=== PATIENT | female | born 1985 | race Asian ===

== ENCOUNTER 2017-12-30 03:38 | Inpatient (IN) ==
[~2017-12-30 03:38] MED LIST: Famotidine 20 MG/2 ML VIAL IVP PRN; Metoclopramide 10 MG/2 ML VIAL IVP PRN; Naloxone 0.4 MG/ML INJ IVP PRN
[2017-12-30] MEDS ORDERED: Ringers Solution, Lactated 1,000 ML IVC SCH ×3 (03:45→05:30)
[2017-12-30 04:10] LABS: Basophils % 0.5 %; Eosinophils # 0.1 K/mcL (0.0-0.6); Eosinophils % 1.7 %; Hematocrit 37.5 % (35.3-44.9); Hemoglobin 12.1 g/dL (11.5-15.4); Immature Granulocytes % 0.6 % (0-4); Lymphocytes # 1.9 K/mcL (0.6-4.6); Lymphocytes % 24.4 %; Mean Corpuscular HGB Conc 32.3 g/dL (31.6-35.5); Mean Corpuscular Hemoglobin 28.2 pg (28.0-33.3); Mean Corpuscular Volume 87.4 fL (83.0-100.0); Mean Platelet Volume 11.1 fL (9.4-12.4); Monocytes # 0.8 K/mcL (0.0-1.3); Monocytes % 9.8 %; Platelet Count 288 K/mcL (140-400); Red Blood Count 4.29 M/mcL (3.82-4.97); Red Cell Distribution Width 15.8 % (11.5-14.5)
[2017-12-30 04:19] LABS: Amphetamine Screen,Urine Negative ng/mL (Cutoff=1000); Barbiturate Screen,Urine Negative ng/mL (Cutoff=200); Benzodiazepines Screen,Urine Negative ng/mL (Cutoff=200); Cannabinoid Screen,Urine Negative ng/mL (Cutoff = 50); Cocaine Screen,Urine Negative ng/mL (Cutoff= 300); Opiate Screen,Urine Negative ng/mL (Cutoff=300); Phencyclidine Screen,Urine Negative ng/mL (Cutoff=25)
[2017-12-30] MEDS ORDERED: CeFAZolin Premix DUPLEX 2,000 MG/50 ML BAG IVPB ONE (04:30)
--- NOTE | 2017-12-30 04:30 | Anesthesia Evaluation PreOp ---
Date of Encounter: 12/30/17 Time of Encounter: 04:28 - Past History Planned Operation: Repeat Csection Cardiac History: Denies any Significant Hx Pulmonary History: Denies Any Significant HX LOW HEEL BUILDER History: Denies Any Significant HX Other Medical History: Thyroid (hx hyperthyroidism) Anesthesia History: No Prior Anesthetic Complications, Past Anesthesia ( Previous Csection x 2, no General anesthetic hx. No family history of anesthesia complications.) : Yes Alcohol Use: none Drug use: none Medications and Allergies Vit/Iron Fumarate/FA [ Tablet] 1 each PO DAILY 12/30/17 [ History] 3 Allergy/AdvReac Type Severity Reaction Status Date / Time No Known Allergies Allergy Verified 12/30/17 03:32 - Meds/Allergy Pre-op Review Medications Reviewed: Yes Allergies Reviewed: Yes Beta Blockers on Current Med List: No Anesthesia Results - Labs 12/30/17 03:38 Anesthesia Exam BP 132/80 P 81 R 16 T 97.6 Height: 5'3" Weight: 74kg NPO (# of Hours): 7.5 Pain Scale: 0 - HEENT Pupil (Motor): Pupils equal Mallampati: III Teeth: Normal Oral Opening: Less than or equal to 3 - LOW HEEL BUILDER LOC: Oriented LOW HEEL BUILDER Motor: Normal RUE, Normal LUE, Normal RLE, Normal LLE, Normal Face LOW HEEL BUILDER Sensory: Normal: RUE, LUE, RLE, LLE, Face - Cardiac Rhythm: Regular Murmur: None JVD: No Carotid Bruit: No - Pulmonary Breath Sounds: bilateral Clear Respiratory Effort: Symmetrical Anesthesia Assess/Plan ASA Score: 2 Modified Dulce Scale for Level of Consciousness: Cooperative, oriented, and tranquil Anesthetic Plan: Regional Autologous Blood: No Monitoring Plan: Standard Monitors Recovery Plan: PACU
[2017-12-30] MEDS ORDERED: Morphine Sulfate/PF 5mg/10mL Vial ONE (04:47)
--- NOTE | 2017-12-30 04:51 | OB/GYN History & Physical ---
Date of Encounter: 12/30/17 Time of Encounter: 04:47 Assessment and Plan (1) History of delivery affecting Current visit: Yes Status: Acute consents signed, patient counseled Anesthesia aware, will proceed to . History of Present Illness HPI: Ms. Coleman is a 32 year old female @ 38+3 weeks with a h/o 2 prior c- sections who was initially scheduled for a RC/S on 01/03. She presents with rupture of membranes, no bleeding, feels good FM. She desires permanent sterilization. Past Med Surg Social Fam HX - Past Medical History Medical history: no medical history Psychiatric history: no psych history - Past Surgical History Surgical History: - Social History Smoking Status: Never smoker Smokeless Tobacco Status: No Alcohol use: none Drug use: none - Family History Mother Living Status: Still Living Hx Family Cardiac Disorders: Yes (high cholesterol) Obstetrical History - Pregnancies : 3 Para: 2 Medications and Allergies Vit/Iron Fumarate/FA [ Tablet] 1 each PO DAILY 12/30/17 [ History] 3 Allergy/AdvReac Type Severity Reaction Status Date / Time No Known Allergies Allergy Verified 12/30/17 03:32 Review of System OB All systems PM: reviewed and no additional remarkable complaints except as stated Exam - Constitutional Constitutional: no acute distress - HEENT HEENT: PERRL - Neck Neck exam: full ROM - Lungs Respiratory exam: CTAB - Cardiovascular Cardiovascular exam: RRR - Abdomen Abdomen: Present: gravid Results Result Diagrams: 12/30/17 03:38 Abnormal lab results RDW 15.8 % (11.5-14.5) H 12/30/17 03:38 All other labs normal.
[2017-12-30] MEDS ORDERED: Ondansetron 4 MG/2 ML VIAL IVP PRN ×2 (04:54→06:53)
[2017-12-30] MEDS ORDERED: Simethicone 80 MG TAB.CHEW PO PRN (04:54)
[2017-12-30] MEDS ORDERED: Sennosides 8.6 MG TABLET PO PRN (04:54)
[2017-12-30] MEDS ORDERED: *HR* OxyCODONE/APAP 5/325 TABLET PO PRN ×2 (04:54→06:53)
[2017-12-30] MEDS ORDERED: Metoclopramide 10 MG/2 ML VIAL IVP PRN (04:54)
[2017-12-30] MEDS ORDERED: Oxytocin 20 units/ LR 1000 mL 20 UNIT/1,000 ML BAG IVC SCH (05:00)
[2017-12-30] MEDS ORDERED: Ondansetron 4 MG/2 ML VIAL ONE (05:04)
[2017-12-30] MEDS ORDERED: Dexamethasone 4 MG/ML VIAL ONE (05:04)
--- NOTE | 2017-12-30 05:26 | Anesthesia Procedures ---
<Mando Gonzalez M - Last Filed: 12/30/17 05:23> Date of Encounter: 12/30/17 Time of Encounter: 04:58 Procedures: Anesthesia - Epidural/Spinal Patient ID/Chart reviewed: Yes Patient examined: Yes OB Eval: Gestational age: 38.3 OB Eval: : 3 OB Eval: Hx Para: 2 OB Eval: Contractions: Non-stressed pattern Consent Obtained: Yes Supplemental Oxygen: None/Room Air Site Prep: Aseptic Technique, Sterile prep and drape, Povidone-Iodine 1% Patient position: upright Local Anesthetic: Lidocaine 1% Amount of Local Anesthetic used: 3 Interspace Used: L4-L5 Loss of Resistance (LOUIE): No Blood: No CSF: Yes Paresthesia: No Spinal Needle Gauge: 25 Spinal Dose: Bupivicaine 0.75% epi wash Morphine 250mcg Procedure: Intrathecal dose administered 1st pass in upright position without any immediate noted complications. VSS throughout. Supine for repeat csection. Vitals + FHT's: See anesthesia record. <Elena Drew A - Last Filed: 01/16/18 07:20> Date of Encounter: 01/16/18
[2017-12-30] MEDS ORDERED: Acetaminophen IV 1,000 MG/100 ML INFUS..BTL IVPB ONE (05:27)
[2017-12-30] MEDS ORDERED: *HR* Promethazine 25 MG/ML VIAL IVP PRN (05:27)
[2017-12-30] MEDS ORDERED: Ondansetron 4 MG/2 ML VIAL IVP ONE (05:27)
[2017-12-30] MEDS ORDERED: *HR* Meperidine 25 MG/ML SYRINGE IVP PRN (05:27)
[2017-12-30] MEDS ORDERED: *HR* OxyCODONE Immed Rel 5 MG TABLET PO PRN (05:27)
[2017-12-30] MEDS ORDERED: *HR* HYDROmorphone 2 MG TABLET PO PRN (05:27)
[2017-12-30] MEDS ORDERED: *HR* Oxytocin 10 UNIT/ML VIAL IM ONE (05:44)
--- NOTE | 2017-12-30 06:36 | OB/GYN Procedure Note ---
OB-[facility] OPERATOR: Procedure - Diagnosis Date of procedure: 12/30/17 Pre-op diagnosis: h/o prior x2, undesired fertility Post-op diagnosis: same - Procedure Procedure: RC/S, BTL Surgeon: Karlos Yadav Was there an hearing aid assistant present: Yes Quality Process Lead: Sophie Hernandez Anesthesia Type: Spinal Estimated blood loss (cc): 20 Fluids: crystalloid Procedure Complications: none Specimens collected: b/l tubes, placenta Disposition: floor Findings: normal uterus, ovaries and tubes, mild pelvic adhesions connecting rectus muscles to ant abd wall Narrative: Patient was brought to the operating room and was given satisfactory spinal anesthesia. The abdomen was prepped and draped in a sterile fashion. A Pfannenstiel incision was made and carried sharply down to the level of fascia. The fascia was incised transversely. The fascia was dissected away from the underlying rectus muscles. With sharp and blunt dissection, rectus muscles were divided in midline. We encountered mild pelvic adhesions but we were able to take down the adhesions without too much difficulty. The peritoneum was entered bluntly. The incision was carried vertically with scissors. Transverse incision was made across the bladder peritoneum. The bladder was dissected away from the underlying lower uterine segment. Bladder retractor was placed to protect the bladder. The lower uterine segment was entered sharply with a scalpel. Incision was manually extended. Infant was noted to be breech with nuchal cord x 2. Infant was delivered atraumatically. The mouth and oropharynx were suctioned. The cord was clamped and cut. The was passed off to the waiting nurse. APGARs 3/9. Placenta was extracted completely and found to be intact. Uterus was explored and found to be empty. Uterus was delivered through the abdominal incision and massaged vigorously. Intravenous Pitocin was administered. Clamps were placed about the margins of the uterine incision, which was closed primarily with a running locking stitch of 0 Vicryl with adequate hemostasis. Secondary running locking stitch was placed for extra strength to the wound. At this point, attention was diverted to the patient's tubes, a [place] clamp grasped the isthmic portion of each tube and approximately 1-cm knuckle on either side was tied off with two lengths of 0 plain catgut. Intervening knuckle was excised and passed off the field. The proximal end of the tubal mucosa was cauterized. The uterus was returned to its proper anatomic position in the abdomen. The fascia was closed with a simple running stitch of 0 vicryl. The skin was closed with running subcuticular of 4-0 vicryl. Uterus was expressed of its contents. Patient was brought to the recovery room in satisfactory condition. There were no complications. There was 250 cc of blood loss. All sponge, needle, and instrument counts were reported to be correct.
[2017-12-30] MEDS ORDERED: Ibuprofen 400 MG TABLET PO PRN (06:53)
[2017-12-30] MEDS ORDERED: *HR* Morphine 2 MG/ML SYRINGE IVP PRN (06:53)
--- NOTE | 2017-12-30 14:03 | Anesthesia Evaluation Post Op ---
Date of Encounter: 12/30/17 Time of Encounter: 14:02 - Vital Signs Vital Signs: Vital Signs/O2 Sat, Most Current Temp Pulse Resp BP Pulse Ox 98.6 F 69 16 128/69 95 12/30/17 12:00 12/30/17 12:00 12/30/17 12:00 12/30/17 12:00 12/30/17 12:00 - Lungs Lungs: Clear Ascult./Percussion - Airway Airway: Non-obstructed - Cardiovascular Regular Rate - Mental Status Mental Status: Alert & Oriented, Answers Appropriately - Pain Pain Scale: 3 - Nausea Vomiting Nausea Vomiting: Not Present - Hydration Hydration: Tolerates oral liquids, Balderas catheter
[2017-12-30] MEDS: Prenatal Vit/FA 1 EACH TABLET PO SCH (16:23)
[2017-12-31 04:31] LABS: Basophils % 0.2 %; Eosinophils # 0.1 K/mcL (0.0-0.6); Eosinophils % 0.5 %; Hemoglobin 10.9 g/dL (11.5-15.4); Immature Granulocytes % 0.4 % (0-4); Lymphocytes # 2.3 K/mcL (0.6-4.6); Lymphocytes % 18.4 %; Mean Corpuscular HGB Conc 32.1 g/dL (31.6-35.5); Mean Corpuscular Volume 87.4 fL (83.0-100.0); Mean Platelet Volume 10.3 fL (9.4-12.4); Monocytes # 0.9 K/mcL (0.0-1.3); Monocytes % 7.1 %; Platelet Count 241 K/mcL (140-400); Red Blood Count 3.89 M/mcL (3.82-4.97); Red Cell Distribution Width 15.8 % (11.5-14.5); Segmented Neutrophils % 73.4 %
[2017-12-31] MEDS: Ibuprofen 600 MG TABLET PO PRN ×2 (09:13→21:12)
[2017-12-31] MEDS: Prenatal Vit/FA 1 EACH TABLET PO SCH (09:13)
--- NOTE | 2017-12-31 10:42 | OB/GYN Progress Note ---
Date of Encounter: 12/31/17 Time of Encounter: 10:38 - Assessment and Plan (1) Status post delivery Current Visit: Yes Status: Acute POD #1 Continue routine care Anticipate d/c home tomorrow Subjective - Subjective Principal diagnosis: s/p RLTCS Interval history: Feeling well. OOB without dizziness. Cramping minimal - using ibuprofen. Bottle feeding. Voiding without difficulty. Passing flatus, no BM yet. Tolerating regular diet and ambulating independently. Patient reports: appetite normal, voiding normally, pain well controlled, ambulating normally [place]: doing well, bottle feeding Objective - Vital Signs Latest vital signs: Vital Signs Temp Pulse Resp BP Pulse Ox 12/31/17 09:30 16 12/31/17 08:20 98.2 F 76 18 113/71 97 12/31/17 04:10 98.2 F 74 16 110/68 96 12/30/17 22:15 98.1 F 71 16 111/68 96 12/30/17 15:58 98.5 F 67 16 108/61 12/30/17 12:00 98.6 F 69 16 128/69 95 12/30/17 11:00 98.1 F 75 16 123/78 95 Intake and Output 12/30/17 12/31/17 12/31/17 23:59 07:59 15:59 Intake Total 360 / 360 0 / 0 Output Total 640 / 640 Balance 360 / 360 -640 / -640 Intake: Oral 360 / 360 0 / 0 Output: Catheter 640 / 640 Other: Meal Dinner Percent of Meal Consumed 50% Stool Characteristics Normal for Patient - Exam Lungs: bilateral: normal Chest: Normal S1, Normal S2 Extremities: Present: normal. Absent: edema Abdomen: Present: normal appearance, soft Incision: Present: normal, intact, dressed Uterus: Present: normal, firm Fundal Height: 0 (midline) - Labs Labs: Laboratory Results - last 24 hr 12/31/17 04:11 WBC 12.3 H D RBC 3.89 Hgb 10.9 L Hct 34.0 L MCV 87.4 MCH 28.0 MCHC 32.1 RDW 15.8 H Plt Count 241 MPV 10.3 Immature Gran % 0.4 Seg Neutrophils % 73.4 Lymphocytes % 18.4 Monocytes % 7.1 Eosinophils % 0.5 Basophils % 0.2 Neutrophils # 9.0 H Lymphocytes # 2.3 Monocytes # 0.9 Eosinophils # 0.1 Basophils # 0.0
[2018-01-01] MEDS: Ibuprofen 600 MG TABLET PO PRN (06:38)
--- NOTE | 2018-01-01 07:40 | Discharge Summary ---
Date of Encounter: 01/01/18 Time of Encounter: 07:37 - Discharge Diagnosis (1) Status post delivery Priority: Primary Status: Acute Comments: Pain well controlled with PO pain meds Tolerating regular diet Voiding independently Passing flatus, but no BM yet Lochia light Ambulating independently Ready for discharge today. - Discharge Medications Prescriptions: OxyCODONE/APAP 5/325 [Percocet 5/325 MG] 1 each PO Q4HR 5 Days #30 tablet Ibuprofen [Motrin] 600 mg PO Q6HR PRN #30 tablet PRN Reason: Cramping Docusate [Colace] 100 mg PO BID #60 capsule Ferrous Sulfate 325 mg PO DAILY #30 tablet Home Medications: Vit/Iron Fumarate/FA [ Tablet] 1 each PO DAILY 12/30/17 [ History] Docusate [Colace] 100 mg PO BID #60 capsule 01/01/18 [Rx] Ferrous Sulfate 325 mg PO DAILY #30 tablet 01/01/18 [Rx] Ibuprofen [Motrin] 600 mg PO Q6HR PRN #30 tablet 01/01/18 [Rx] OxyCODONE/APAP 5/325 [Percocet 5/325 MG] 1 each PO Q4HR 5 Days #30 tablet [Rx] Simethicone [Gas-X] 80 mg PO TID PRN tab.chew 01/01/18 [Rx] Allergies/Adverse Reactions: 3 Allergy/AdvReac Type Severity Reaction Status Date / Time No Known Allergies Allergy Verified 12/30/17 03:32 Data Procedures and tests throughout hospitalization: Laboratory Tests 12/30/17 12/30/17 12/31/17 03:38 03:38 04:11 WBC 7.9 12.3 H D RBC 4.29 3.89 Hgb 12.1 10.9 L Hct 37.5 34.0 L MCV 87.4 87.4 MCH 28.2 28.0 MCHC 32.3 32.1 RDW 15.8 H 15.8 H Plt Count 288 241 MPV 11.1 10.3 Immature Gran % 0.6 0.4 Seg Neutrophils % 63.0 73.4 Lymphocytes % 24.4 18.4 Monocytes % 9.8 7.1 Eosinophils % 1.7 0.5 Basophils % 0.5 0.2 Neutrophils # 5.0 9.0 H Lymphocytes # 1.9 2.3 Monocytes # 0.8 0.9 Eosinophils # 0.1 0.1 Basophils # 0.0 0.0 Urine Opiates Screen Negative Ur Barbiturates Screen Negative Ur Phencyclidine Scrn Negative Ur Amphetamines Screen Negative U Benzodiazepines Scrn Negative Urine Cocaine Screen Negative U Marijuana (THC) Screen Negative Date of admission: 12/30/17 03:38 Primary care physician: PCP NONE Discharging clinician: Ivy Suero Anticipated date of discharge: 01/01/18 - Patient Status Disposition: Home, Self-Care Condition: Good Functional capacity at discharge: independent ambulation Overall status at discharge: patient is progressing back to baseline - Discharge Instructions Follow Up With: NONE,PCP [Primary Care Provider] - Omayra Rojas DO [Partnered Physician] - - Diet and Activity Activity: increase activity as tolerated Diet: regular diet Hospital Course Reason for admission: section, IUP at term Delivery: section Episiotomy: none Laceration: none Other procedures: none complications: none Discharge diagnosis: IUP at term delivered Brooks baby: female Time Attestation: Total time spent providing and/or coordinating discharge services: Time Spent: Less than 30 minutes - VTE Documentation of Mechanical Device: Intermittent pneumatic compression device Exam - Constitutional Vitals: Temp Pulse Resp BP Pulse Ox 98.3 F 86 16 144/75 96 12/31/17 21:11 12/31/17 21:11 12/31/17 21:11 12/31/17 21:11 12/31/17 21:11 General appearance IM: A&O X 3 - Respiratory Respiratory exam: Present: CTAB - Cardiovascular Cardiovascular exam IM: Present: RRR, +S1, +S2 - GI/Abdominal GI/Abdominal exam IM: normal bowel sounds, no peritoneal signs Incision: normal, dry, intact - Rectal Rectal exam: deferred - Uterine Tone: Firm Uterus Position: 2 Fingers Below Umbilicus, Midline - Extremities Exam Extremities exam IM: Present: normal inspection, radial pulses palpable and symmetrical - Neurological Exam Neurological exam: alert, oriented X3 - Psychiatric Additional comments: Pt feeling mentally well. No history of anxiety/depression. S/sx of PPD discussed and patient verbalized when to call.
[2018-01-01] MEDS: Prenatal Vit/FA 1 EACH TABLET PO SCH (08:10)
[2018-01-01 08:31] VITALS: BP 115/75
== END 2018-01-01 11:10 | disposition home or self-care (01) | DRG 540 ==
LOC: 1NENULAB → 1NENUOBS 09:13
PROVIDERS: ADMIT Student in an Organized Health Care Education/Training Program; ATTEND Student in an Organized Health Care Education/Training Program